=== PATIENT | male | born 1995 | race Caucasian/White ===

== ENCOUNTER 2018-08-14 19:56 | Emergency (ER) | payer OTHER ==
[~2018-08-14] VITALS: Ht 182.9 cm; Wt 79.4 kg
[2018-08-14] MEDS ORDERED: IBUP600 PO (21:11)
== END 2018-08-14 21:43 | disposition home or self-care (01) ==
LOC: ER 19:56
DX: S62.525A Nondisplaced fracture of distal phalanx of left thumb, initial encounter for closed fracture (principal); S61.112A Laceration without foreign body of left thumb with damage to nail, initial encounter; Z23 Encounter for immunization; Z88.0 Allergy status to penicillin; W23.0XXA Caught, crushed, jammed, or pinched between moving objects, initial encounter
CPT/HCPCS: 11740; 29125; 73140; 90471; 90714; 99283-25

== ENCOUNTER 2020-08-18 13:45 | Emergency (ER) | payer SELFPAY ==
[~2020-08-18] VITALS: Ht 182.9 cm; Wt 95.2 kg
[~2020-08-18 13:45] MED LIST: IBUP600 PO
[2020-08-18] MEDS ORDERED: CYCL10 PO (15:49)
[2020-08-18] MEDS ORDERED: LIDO700A20 TOP (15:49)
== END 2020-08-18 15:56 | disposition home or self-care (01) ==
LOC: ER 13:45
DX: S16.1XXA Strain of muscle, fascia and tendon at neck level, initial encounter (principal); S46.911A Strain of unspecified muscle, fascia and tendon at shoulder and upper arm level, right arm, initial encounter; F17.210 Nicotine dependence, cigarettes, uncomplicated; X58.XXXA Exposure to other specified factors, initial encounter
CPT/HCPCS: 99283